=== PATIENT | female | born 1950 | race Caucasian/White ===

== ENCOUNTER → 2018-02-17 | Outpatient (CLI) | payer OTHER ==
[~2018-02-17] MED LIST: ALBU8.5H IH; GUAI473L PO; IBU200 PO; LEVO25TA61 PO; LEVO50TA86 PO; LEVO75TA73 PO; PRED-1 PO; RANI-366 PO; SULF-198 PO; vitamins
== END ==
LOC: LAB 09:13
PROVIDERS: ATTEND Emergency Medicine
DX: Z02.9 Encounter for administrative examinations, unspecified (principal)

== ENCOUNTER → 2018-06-28 | Outpatient (CLI) | payer OTHER ==
[~2018-06-28] MED LIST changes: +PNEU0.5D3 IM
== END ==
LOC: LAB 16:25
PROVIDERS: ATTEND Emergency Medicine
DX: G62.9 Polyneuropathy, unspecified (principal)
CPT/HCPCS: 36415; 82607; 83036

== ENCOUNTER 2018-07-31 17:00 | Outpatient (RCR) | payer OTHER ==
--- NOTE | 2018-07-04 17:46 | PT INITIAL EVALUATION ---
MEDICAL DIAGNOSIS: Left hip pain TREATMENT DIAGNOSIS: same, LBP with radiating pain down L LE DATE OF ONSET: 11/02/12 SUBJECTIVE: Jessica Almanza presents to physical therapy with complaints of low back pain that radiates to anterior groin down anterior and lateral thigh of L LE and occasionally into lateral calf or lower leg on L LE. She reports that the pain in the past has gone from the low back region to the R PSIS, but she states now that the pain seems to be going only down the L LE. She reports that the pain started for no apparent reason in October 2012 and states that it gets better and then worse and has continued that cycle for 5 years. She reports that she feels like it is in the phase of getting better. She reports that her L LE feels extremely tight and is unable to perform figure four, sit, stand, walk, and lye. She reports that she continues to do exercise 6 days a week with 3 days of cardio and strengthening 3 days with stretching occurring everyday. She states that she does not feel too much pain during the exercise but have a severe limp following the exercise. She rates her current pain to be 0/10. She reports that if she pushes off during ambulation she rates her pain to be 5/10. Pain location is and described as low back pain that radiates to anterior groin down anterior and lateral thigh of L LE and occasionally into lateral calf or lower leg on L LE. Pain scale is 0 on a ten point pain scale. REHAB PROBLEM LIST: Increased Pain Decreased ROM Decreased Strength Decreased Endurance Decreased Function Decreased ADL's Decreased Gait PREVIOUS MEDICAL HISTORY: See EMR OCCUPATION: Works for a [employer] organization OBJECTIVE: Posture: She demonstrates increased thoracic kyphosis and severe reduction of lumbar lordosis. ROM: Trunk AROM: flexion: minimal restriction with strain at end feel. extension: major restriction with tight end feel. side gliding R: major restriction with painful end feel. side gliding L: NIL with muscular end feel. Strength: Will test next session Palpation: TTP: low back pain that radiates to anterior groin down anterior and lateral thigh of L LE and occasionally into lateral calf or lower leg on L LE Sensation: Intact L2-S1 B Special Tests: Repeated extension in lying: increased pain during the test and better following the test with more centralized low back pain. Mobility: Independent Gait: Without any AD, she demonstrated the following gait mechanics: decreased R step length, antalgic gait, normal base of support, increased trunk flexion, normal B step clearance, and decreased pelvic rotation. Balance: Will test in the future ASSESSMENT: Jessica will benefit from skilled physical therapy to address the listed impairments to improve function and QOL. Based on the initial examination, her provisional classification will be derangement that responded well to extension based principles. She is independent in her specific exercise. Short Term Goals 2 weeks: Pt will demonstrate centralized low back pain to improve function and QOL. 4 weeks: Pt will demonstrate abolished low back pain and return to full trunk AROM in all directions to improve function and QOL. 6 weeks: Pt will demonstrate abolished low back pain and abolished radiating pain and return to prior level of function. 8 weeks: Pt will be educated on how to prevent future reoccurrences and ways to avoid low back pain in the future. Patient's Goals get her L side back to normal, decrease tightness, decrease pain, get back to plyometrics, and walk better. PLAN: Patient to be seen for Manual Therapy/STM/MET Strengthening/condition Ice/Heat Range of Motion Spinal Stabilization Work Hardening/Cond Stretching Neuromuscular Re-ed Closed Chain Program Electrical Stim Posture/Body mechanics Gait Trg/Balance Trg Home Exercise Program Therapeutic Activities 2x/Week for 2 Months If you have any questions, comments, or concerns about this report or plan, please contact me at . Thank you, Jasbir Ordonez, PT, DPT MTDD
[~2018-07-31 17:00] MED LIST changes: +CYAN100058 PO
== END 2018-07-31 18:00 | disposition home or self-care (01) ==
LOC: PT 17:00
PROVIDERS: ATTEND Emergency Medicine
DX: M25.552 Pain in left hip (principal); M54.5 Low back pain
CPT/HCPCS: 97162